=== PATIENT | male | born 1990 | race Hispanic/Latino ===

== ENCOUNTER 2017-01-09 20:36 | Emergency (ER) | payer BC, MEDICARE ==
[2017-01-09 20:36] VITALS: BMI 22.9
[2017-01-09 20:46] VITALS: BP 149/92; PULSE 73; RESP 16; TEMP 98.1; O2SAT 100
--- NOTE | 2017-01-09 21:34 | ED PDOC ---
HPI: General Adult Time Seen by Provider: 01/09/17 21:25 Chief Complaint (Nursing): Medical Clearance Chief Complaint (Provider): medication History Per: Patient History/Exam Limitations: no limitations Have you had recent travel within the past 21 days to any of the following countries: [place], [place], [place] or [place]?: No Additional Complaint(s): Edgard Maurer is a 26 year old male, with a previous medical history of OCD and ADHD, who presents to the ED via [facility] for medical clearance. Pt is currently in custody and claims he has not taken his medications today. Pt denies any active medical complaints. Pt reports to taking 60 mg Paxil, 10 mg abilify, adderall and vyvanse. Pt denies any chest pain, shortness of breath, homicidal ideation, suicidal ideation or hallucinations. PMD: Past Medical History Reviewed: Historical Data, Nursing Documentation, Vital Signs Vital Signs: Last Vital Signs Temp 98.1 F 01/09/17 20:43 Pulse 73 01/09/17 20:43 Resp 16 01/09/17 20:43 BP 149/92 H 01/09/17 20:43 Pulse Ox 100 01/09/17 21:42 - Medical History PMH: Anxiety, Depression - Family History Family History: States: Unknown Family Hx - Immunization History Hx Tetanus Toxoid Vaccination: No Hx Influenza Vaccination: No Hx Pneumococcal Vaccination: No - Home Medications Home Medications: Ambulatory Orders Medication Instructions Recorded ARIPiprazole [Abilify] 10 mg PO DAILY 03/08/16 Ondansetron [Zofran Odt] 4 mg PO Q8 PRN #10 odt 03/08/16 PARoxetine [Paxil] 30 mg PO DAILY 03/08/16 clonazePAM [clonAZEPAM] 1 mg PO DAILY 03/08/16 clonazePAM [clonAZEPAM] 1 mg PO DAILY PRN #12 tab 03/08/16 - Allergies Allergies/Adverse Reactions: Allergies Allergy/AdvReac Type Severity Reaction Status Date / Time No Known Allergies Allergy Verified 03/08/16 16:55 Review of Systems ROS Statement: Except As Marked, All Systems Reviewed And Found Negative Cardiovascular: Negative for: Chest Pain Respiratory: Negative for: Shortness of Breath Psych: Negative for: Suicidal ideation, Other (hallucinations or homicidal ideation ) Physical Exam - Reviewed Nursing Documentation Reviewed: Yes Vital Signs Reviewed: Yes - Physical Exam Appears: Positive for: Well, Non-toxic, No Acute Distress Head Exam: Positive for: ATRAUMATIC, NORMAL INSPECTION, NORMOCEPHALIC Cardiovascular/Chest: Positive for: Regular Rate, Rhythm Respiratory: Positive for: CNT, Normal Breath Sounds Neurologic/Psych: Positive for: Alert, Oriented - ECG O2 Sat by Pulse Oximetry: 100 (RA) Pulse Ox Interpretation: Normal - Progress ED Course And Treament: seen by crisis cleared for d/c by Dr. Rdz Diagnosis OCD Abilify 10 mg x 1 dose in ED Medical Decision Making Medical Decision Making: Initial Impression: medical clearance Initial Plan: * abilify * reevaluation Scribe Attestation: Documented by Marce Krueger, acting as a scribe for Radha Ann PA-C. Provider Scribe Attestation: All medical record entries made by the Scribe were at my direction and personally dictated by me. I have reviewed the chart and agree that the record accurately reflects my personal performance of the history, physical exam, medical decision making, and the department course for this patient. I have also personally directed, reviewed, and agree with the discharge instructions and disposition. Disposition - Clinical Impression Clinical Impression: Medical clearance for incarceration, OCD (obsessive compulsive disorder) - Patient ED Disposition Is Patient to be Admitted: No - Disposition Disposition: Routine/Home Disposition Time: 21:46 Condition: FAIR Additional Instructions: PATIENT CLEARED MEDICALLY AND PSYCHIATRICALLY FOR INCARCERATION Instructions: Normal Exam (ED)
== END 2017-01-09 21:58 | disposition home or self-care (01) ==
LOC: H.ER 20:36
DX: F42.9 Obsessive-compulsive disorder, unspecified (principal)

== ENCOUNTER 2018-02-05 00:35 | Emergency (ER) | payer BC, MEDICARE ==
[2018-02-05 00:35] VITALS: BMI 22.9
[2018-02-05 00:38] VITALS: RESP 18
--- NOTE | 2018-02-05 01:54 | ED PDOC ---
HPI: General Adult Time Seen by Provider: 02/05/18 00:47 Chief Complaint (Nursing): Medical Clearance Chief Complaint (Provider): clearance for incarceration History Per: Patient Additional Complaint(s): 27 y/o male in police custody for medical and psychiatric clearance for incarceration. Patient denies acute medical or psychiatric complaints. Denies suicidal/homicidal ideations. Past Medical History Vital Signs: Last Vital Signs Temp 97.8 F 02/05/18 00:36 Pulse 101 H 02/05/18 00:36 Resp 18 02/05/18 00:36 BP 124/78 02/05/18 00:36 Pulse Ox 97 02/05/18 00:36 - Medical History PMH: Anxiety, Depression Denies: Sexually Transmitted Disease Other PMH: OCD - Family History Family History: States: Unknown Family Hx - Immunization History Hx Tetanus Toxoid Vaccination: No Hx Influenza Vaccination: No Hx Pneumococcal Vaccination: No - Home Medications Home Medications: Ambulatory Orders Medication Instructions Recorded ARIPiprazole [Abilify] 10 mg PO DAILY 03/08/16 Ondansetron [Zofran Odt] 4 mg PO Q8 PRN #10 odt 03/08/16 PARoxetine [Paxil] 30 mg PO DAILY 03/08/16 clonazePAM [clonAZEPAM] 1 mg PO DAILY 03/08/16 clonazePAM [clonAZEPAM] 1 mg PO DAILY PRN #12 tab 03/08/16 - Allergies Allergies/Adverse Reactions: Allergies Allergy/AdvReac Type Severity Reaction Status Date / Time No Known Allergies Allergy Verified 03/08/16 16:55 Review of Systems ROS Statement: Except As Marked, All Systems Reviewed And Found Negative Physical Exam - Reviewed Nursing Documentation Reviewed: Yes Vital Signs Reviewed: Yes - Physical Exam Appears: Positive for: Well, Non-toxic, No Acute Distress Head Exam: Positive for: ATRAUMATIC, NORMAL INSPECTION, NORMOCEPHALIC Skin: Positive for: Normal Color Eye Exam: Positive for: Normal appearance ENT: Positive for: Normal ENT Inspection Cardiovascular/Chest: Positive for: Regular Rate, Rhythm Respiratory: Positive for: Normal Breath Sounds Gastrointestinal/Abdominal: Positive for: Normal Exam Back: Positive for: Normal Inspection Extremity: Positive for: Normal ROM Neurologic/Psych: Positive for: Alert, Oriented - ECG O2 Sat by Pulse Oximetry: 97 - Progress ED Course And Treament: Patient evaluated by warehouse insulation worker and cleared for discharge as per Dr. Rdz. Disposition - Clinical Impression Clinical Impression: Adjustment disorder, Medical clearance for incarceration - Patient ED Disposition Is Patient to be Admitted: No Counseled Patient/Family Regarding: Diagnosis, Need For Followup - Disposition Disposition: Discharged/Transfer to Law Enforcement Disposition Time: 01:55 Condition: STABLE Instructions: Adjustment Disorder
[2018-02-05 02:17] VITALS: BP 128/78; PULSE 96; TEMP 98.1; O2SAT 98
== END 2018-02-05 02:03 ==
LOC: H.ER 00:35
DX: F43.22 Adjustment disorder with anxiety (principal); F32.9 Major depressive disorder, single episode, unspecified; F42.9 Obsessive-compulsive disorder, unspecified

== ENCOUNTER 2018-10-14 00:11 | Emergency (ER) | payer MEDICAID, MEDICARE ==
[2018-10-14 00:17] VITALS: BMI 24.3
--- NOTE | 2018-10-14 01:18 | ED PDOC ---
HPI: Trauma/Fall - HPI Time Seen by Provider: 10/14/18 00:50 Chief Complaint (Nursing): Psychiatric Evaluation Chief Complaint (Provider): SI History Per: Patient History/Exam Limitations: no limitations Injury Occurred (Timing): Hours Ago: Additional Complaint(s): 27 y/o male history of depression, anxiety, OCD, heroin abuse here in police custody for clearance for incarceration. Patient states he banged his head against a cement wall, punched a cement wall, and kicked a cement wall tonight in attempts to kill himself. Patient reports being off psych meds for 5 days because he ran out. Patient reports headache, right hand pain, and right ankle pain. Denies LOC, dizziness, nausea/vomiting, vision changes, extremity numbness/weakness, neck/back pain, homicidal ideations, hallucinations. Past Medical History Reviewed: Historical Data, Nursing Documentation, Vital Signs Vital Signs: Last Vital Signs Temp 98.1 F 10/14/18 00:17 Pulse 99 H 10/14/18 00:17 Resp 18 10/14/18 00:17 BP 149/96 H 10/14/18 00:17 Pulse Ox 98 10/14/18 00:17 - Medical History PMH: Anxiety, Depression Denies: Diabetes, Hepatitis, HIV, HTN, Seizures, Sexually Transmitted Disease - Surgical History Surgical History: No Surg Hx - Family History Family History: States: Unknown Family Hx - Social History Current smoker - smoking cessation education provided: Yes Alcohol: None Drugs: Opiates - Immunization History Hx Tetanus Toxoid Vaccination: No Hx Influenza Vaccination: No Hx Pneumococcal Vaccination: No - Home Medications Home Medications: Ambulatory Orders Medication Instructions Recorded ARIPiprazole [Abilify] 10 mg PO DAILY 03/08/16 Ondansetron [Zofran Odt] 4 mg PO Q8 PRN #10 odt 03/08/16 PARoxetine [Paxil] 30 mg PO DAILY 03/08/16 clonazePAM [clonAZEPAM] 1 mg PO DAILY 03/08/16 clonazePAM [clonAZEPAM] 1 mg PO DAILY PRN #12 tab 03/08/16 - Allergies Allergies/Adverse Reactions: Allergies Allergy/AdvReac Type Severity Reaction Status Date / Time No Known Allergies Allergy Verified 10/14/18 00:17 Review of Systems ROS Statement: Except As Marked, All Systems Reviewed And Found Negative Musculoskeletal: Positive for: Hand Pain (right), Foot Pain (right ankle) Neurological: Positive for: Headache Physical Exam - Reviewed Nursing Documentation Reviewed: Yes Vital Signs Reviewed: Yes - Physical Exam Appears: Positive for: Well, Non-toxic, Uncomfortable Head Exam: Positive for: NORMAL INSPECTION, NORMOCEPHALIC. Negative for: ATRAUMATIC (right and mid frontal scalp hematomas. Right parietal scalp hematoma with abrasion, occipital scalp hematoma with abrasion) Eye Exam: Positive for: EOMI, PERRL, Periorbital tenderness (right supraorbital edema/tenderness). Negative for: Conjunctival injection ENT: Positive for: Normal ENT Inspection Neck: Positive for: Normal, Painless ROM Cardiovascular/Chest: Positive for: Regular Rate, Rhythm Respiratory: Positive for: Normal Breath Sounds Pulses-Radial (L): 2+ Pulses-Radial (R): 2+ Extremity: Positive for: Normal ROM, Tenderness (anterior aspect right ankle without swelling, deformity. Distal NV/motor intact), Capillary Refill (<3 sec b/l UE), Swelling (dorsal right hand 4th and 5th metacarpals with tenderness to palpate. Distal NV/motor intact) Neurologic/Psych: Positive for: Alert, Oriented (x3). Negative for: Motor/Sensory Deficits - Laboratory Results Result Diagrams: 10/14/18 03:05 10/14/18 03:05 - ECG ECG: Positive for: Viewed By Me (reviewed by ED attending) ECG Rhythm: Positive for: Sinus Rhythm O2 Sat by Pulse Oximetry: 98 - Other Rad xray right hand X-Ray: Viewed By Me X-Ray Interpretation: no acute findings xray right ankle X-Ray: Viewed By Or X-Ray Interpretation: no acute findings - Progress ED Course And Treament: -1:1 -crisis eval -CT head -CT facial bones -Right hand xray -right ankle xray CT scan of the facial bones. Indication: Trauma. Technique: Axial CT scan images without contrast. Reformatted coronal and sagittal images. Findings: Secretions in the maxillary sinuses. Normal bilateral orbital contents. Normal bilateral medial and inferior orbital manuel. Normal bilateral maxillary bones. Normal bilateral frontozygomatic arches. Normal bilateral zygomatic temporal arches. Normal nasal bones. Normal anterior nasal spine. Right periorbital soft tissue edema. There is no demonstrated fracture. Normal visualized frontal, ethmoidal and sphenoid sinuses. Impression: No CT evidence of acute bone pathology. Right periorbital soft tissue edema. Thank you for your kind referral of this patient CT SCAN OF THE BRAIN WITHOUT IV CONTRAST CLINICAL INDICATION: Trauma. TECHNIQUE: Axial and reformatted sagittal and coronal images of the brain obtained without IV contrast administration. Normal size of the ventricles and extra-axial spaces for the patient's age. Normal white matter tracts of the supratentorial brain. Normal basal ganglia and thalami. Normal brainstem. Normal cerebellum. There is no demonstrated extra-axial, intraparenchymal, or intraventricular hemorrhage. There are no findings of an acute ischemic infarction. Normal calvarium. There is no demonstrated fracture. Right orbital/frontal subgaleal soft tissue hematoma. Normal visualized paranasal sinuses. IMPRESSION: Normal unenhanced CT scan of the brain. Soft tissue hematoma Patient evaluated by grounds maintenance worker and cleared for discharge into police custody as per Dr. Romo Disposition - Clinical Impression Clinical Impression: Substance induced mood disorder, Injury of right hand, Right ankle injury, Head injury - Patient ED Disposition Is Patient to be Admitted: No Counseled Patient/Family Regarding: Studies Performed, Diagnosis, Need For Followup - Disposition Disposition: Discharged/Transfer to Law Enforcement Disposition Time: 05:14 Condition: STABLE Additional Instructions: Patient medically and psychiatrically cleared for incarceration Instructions: Minor Head Injury, Hand Pain, Ankle Sprain, Polysubstance Abuse
[2018-10-14 03:20] LABS: BASO % 0.4 % (0.0-2.0); EOS # 0.1 K/uL (0.0-0.7); EOS % 1.5 % (0.0-4.0); HEMOGLOBIN 13.8 g/dL (12.0-18.0); LYMPH # 1.5 K/uL (1.0-4.3); LYMPH % 21.2 % (20.0-40.0); MEAN CELL VOLUME 86.1 fl (80.0-94.0); MEAN CORPUSCULAR HEMOGLOBIN 28.3 pg (27.0-31.0); MEAN CORPUSCULAR HGB CONC 32.9 g/dL (33.0-37.0); MEAN PLATELET VOLUME 7.6 fl (7.2-11.7); MONO # 0.5 K/uL (0.0-0.8); MONO % 7.2 % (0.0-10.0); NEUT % 69.7 % (50.0-75.0); NRBC % 0.1 % (0.0-0.0); RBC 4.86 Mil/uL (4.40-5.90); WHITE BLOOD COUNT 7.1 K/uL (4.8-10.8)
[2018-10-14 03:21] LABS: URINE BILIRUBIN NEGATIVE (NEGATIVE); URINE BLOOD NEGATIVE (NEGATIVE); URINE CLARITY SLIGHTY-CLOUDY (Clear); URINE COLOR YELLOW (YELLOW); URINE GLUCOSE (UA) NEG (NEGATIVE); URINE LEUKOCYTE ESTERASE NEG Leu/uL (Negative); URINE PROTEIN NEGATIVE (NEGATIVE); URINE UROBILINOGEN 0.2-1.0 mg/dL (0.2-1.0)
[2018-10-14 03:35] LABS: ALB/GLOB RATIO 1.5 (1.0-2.1); ALBUMIN 4.3 g/dL (3.5-5.0); ALT/SGPT 22 U/L (21-72); AST/SGOT 29 U/L (17-59); BLOOD UREA NITROGEN 17 mg/dl (9-20); CALCIUM 9.6 mg/dL (8.4-10.2); GFR NON-AFRICAN AMERICAN > 60
[2018-10-14 03:35] LABS: BARBITURATES, UR NEGATIVE (NEGATIVE); BENZODIAZEPINES, UR NEGATIVE (NEGATIVE); OPIATES, UR POSITIVE (NEGATIVE); PHENCYCLIDINE, UR NEGATIVE (NEGATIVE)
[2018-10-14 05:26] VITALS: BP 131/84; RESP 20; TEMP 98; O2SAT 100
[2018-10-14 05:30] VITALS: PULSE 98
--- NOTE | 2018-10-14 07:54 | RAD ---
Date of service: 10/14/2018 PROCEDURE: Right Ankle Radiographs. HISTORY: pain anterior aspect COMPARISON: None available. FINDINGS: BONES: Normal. No fracture. JOINTS: Normal. No osteoarthritis. Ankle mortise maintained. Talar dome intact SOFT TISSUES: Normal. OTHER FINDINGS: None. IMPRESSION: Normal right ankle radiographs.
--- NOTE | 2018-10-14 07:54 | RAD ---
PROCEDURE: Right Hand Radiographs. HISTORY: injury, pain 4-5 metatarsals COMPARISON: None. FINDINGS: BONES: No acute fracture appreciated. 5th meta carpal osseous hypertrophy and deformity continues to the carpal-metacarpal joint here--prior posttraumatic deformity posttraumatic arthrosis here inferred. JOINTS: Arthrosis-most pronounced 5th carpal metacarpal joint. SOFT TISSUES: The dorsal soft tissue swelling present is distal to chronic appearing post-traumatic 5th metacarpal carpal deformity level OTHER FINDINGS: None. IMPRESSION: No acute fracture or dislocation. Dorsal soft tissue swelling-4th and 5th metacarpal head levels-distal to the marked chronic appearing posttraumatic deformity (5th metacarpal-carpal level)
--- NOTE | 2018-10-14 09:47 | CT ---
Date of service: 10/14/2018 PROCEDURE: CT HEAD WITHOUT CONTRAST. HISTORY: head injury COMPARISON: None available. TECHNIQUE: Axial computed tomography images were obtained through the head/brain without intravenous contrast. Radiation dose: Total exam DLP = 809.8 mGy-cm. This CT exam was performed using one or more of the following dose reduction techniques: Automated exposure control, adjustment of the mA and/or kV according to patient size, and/or use of iterative reconstruction technique. FINDINGS: HEMORRHAGE: No intracranial hemorrhage. BRAIN: No mass effect or edema. No atrophy or chronic microvascular ischemic changes. VENTRICLES: Unremarkable. No hydrocephalus. CALVARIUM: Unremarkable. PARANASAL SINUSES: Leftward nasal septal deviation for 10 left nasal airway passages. Some anterior medial left maxillary sinus inflammatory changes are also suspect. MASTOID AIR CELLS: Unremarkable as visualized. No inflammatory changes. OTHER FINDINGS: Right periorbital/frontal scalp soft tissue swelling/hematoma IMPRESSION: Right frontal periorbital scalp hematoma. No intracranial hemorrhage or mass effect. No calvarial acute fracture noted. Paranasal sinus inflammatory changes as detailed above-the paranasal sinus inflammatory changes are not mentioned on the preliminary [facility] report. Otherwise the [facility] report is concordant.
--- NOTE | 2018-10-14 10:37 | CT ---
Date of service: 10/14/2018 PROCEDURE: CT MAXILLOFACIAL BONES WITHOUT CONTRAST HISTORY: facial trauma COMPARISON: None available. TECHNIQUE: Contiguous axial CT images of the maxillofacial bones were obtained. Coronal and sagittal reformats were generated. Radiation dose: Total exam DLP = 711.74 mGy-cm. This CT exam was performed using one or more of the following dose reduction techniques: Automated exposure control, adjustment of the mA and/or kV according to patient size, and/or use of iterative reconstruction technique. FINDINGS: NASAL BONES: Unremarkable. ORBITS: Unremarkable. PARANASAL SINUSES/ MASTOIDS: Bilateral maxillary sinus inflammatory changes present. Left maxillary sinus more so than right. Mucosal thickening and small fluid levels in each sinus suggested. MAXILLA: Unremarkable. MANDIBLE/ TEMPOROMANDIBULAR JOINTS: Unremarkable. SKULL BASE: Unremarkable. TEMPORAL BONES: Middle ears and mastoid grossly unremarkable. OTHER FINDINGS: Right periorbital/frontal scalp soft tissue swelling. IMPRESSION: Right periorbital for/frontal scalp soft tissue swelling. No maxillofacial fracture seen. Bilateral maxillary sinus inflammatory changes as above. Concordant results (preliminary interpretation) provided by [facility].
--- NOTE | 2018-10-14 10:48 | CARD ---
APPROVED REPORT Date of service: 10/14/2018 EKG Measurement Heart [id number] <Conclusion> Normal sinus rhythm Normal Electrocardiogram
== END 2018-10-14 05:50 ==
LOC: H.ER 00:11
DX: F19.94 Other psychoactive substance use, unspecified with psychoactive substance-induced mood disorder (principal); S69.91XA Unspecified injury of right wrist, hand and finger(s), initial encounter; S99.911A Unspecified injury of right ankle, initial encounter; F17.200 Nicotine dependence, unspecified, uncomplicated; Z86.59 Personal history of other mental and behavioral disorders; W22.01XA Walked into wall, initial encounter